=== PATIENT | female | born 1975 | race Caucasian/White ===

== ENCOUNTER 2016-08-05 00:30 | Emergency (ER) | payer OTHER ==
[2016-08-05 00:47] VITALS: TEMP 97.8; BMI 33.2
--- NOTE | 2016-08-05 01:17 | PDOC ---
History of Present Illness - History of Present Illness Initial Comments: 08/05/16 01:31 Patient is a 41 year old female with significant medical hx of cervical and uterine CA, craniotomy, laminectomy, budd chiari, who is presenting to the ED with abdominal pain for two weeks. Two weeks ago the patient developed a dull abdominal pain that has progressed the past three days. Her pain is localized to the RUQ and epigastric area; she denies radiation to the back. The patients pain is described as colicky with associated waves of nausea and loss of appetite. The patient states shes had hives with codeine but has no reaction with dilaudid. Denies diarrhea, changes in bowel habits, fever, chills. Surgical Hx: Total hysterectomy, appendectomy <Pina Osman - Last Filed: 08/05/16 01:29> <Kacey Kelly - Last Filed: 08/06/16 02:26> - General Chief Complaint: Pain Stated Complaint: R SIDED ABD PAIN Time Seen by Provider: 08/05/16 00:56 Past History <Pina Osman - Last Filed: 08/05/16 01:29> - Past Medical History Cancer: Yes (CERVIX AND UTERINE) Kidney Stones: Yes (LEFT SIDE 2002) Psychiatric Problems: Yes (anxiety) Suicide Attempt (Hx): No - Surgical History Appendectomy: Yes Neurologic Surgery: Yes (CRANIECTOMY/LAMINECTOMY) - Immunization History Immunization Up to Date: Yes (FLU ) - Psycho/Social/Smoking Cessation Hx Anxiety: No Suicidal Ideation: No Smoking Status: No Smoking History: Never smoked Have you smoked in the past 12 months: No Number of Cigarettes Smoked Daily: 0 Information on smoking cessation initiated: No Hx Alcohol Use: No Drug/Substance Use Hx: No Substance Use Type: None Hx Substance Use Treatment: No <Kacey Kelly - Last Filed: 08/06/16 02:26> - Past Medical History Allergies/Adverse Reactions: Allergies Allergy/AdvReac Type Severity Reaction Status Date / Time doxycycline Allergy Intermediate Hives Verified 08/05/16 00:48 acetaminophen [From Percocet] Allergy Mild Hives Verified 04/26/13 11:13 codeine Allergy Mild Hives Verified 04/26/13 11:15 oxycodone HCl [From Percocet] Allergy Mild Hives Verified 04/26/13 11:13 venom-honey bee Allergy Hives Verified 08/05/16 00:48 Home Medications: Ambulatory Orders Clonazepam [Klonopin] 1 mg PO HS PRN 08/05/16 Review of Systems - Review of Systems Comments:: 08/05/16 01:31 CONSTITUTIONAL: Present: loss of appetite Absent: fever, chills, diaphoresis, generalized weakness, malaise HEENT: Absent: rhinorrhea, nasal congestion, throat pain, throat swelling, difficulty swallowing, mouth swelling, ear pain, eye pain, visual changes CARDIOVASCULAR: Absent: chest pain, syncope, palpitations, irregular heart rate, lightheadedness , peripheral edema RESPIRATORY: Absent: cough, shortness of breath, dyspnea with exertion, orthopnea, wheezing, stridor, hemoptysis GASTROINTESTINAL: Present: RUQ and epigastric pain, nausea Absent: abdominal distension, vomiting, diarrhea, constipation, melena, hematochezia GENITOURINARY: Absent: dysuria, frequency, urgency, hesitancy, hematuria, flank pain, genital pain MUSCULOSKELETAL: Absent: myalgia, arthralgia, joint swelling SKIN: Absent: rash, itching, pallor HEMATOLOGIC/IMMUNOLOGIC: Absent: easy bleeding, easy bruising, lymphadenopathy, frequent infections ENDOCRINE: Absent: unexplained weight gain, unexplained weight loss, heat intolerance, cold intolerance NEUROLOGIC: Absent: headache, focal weakness or paresthesia, dizziness, unsteady gait, seizure, mental status changes, bladder or bowel incontinence. PSYCHIATRIC: Absent: anxiety, depression, suicidal or homicidal ideation, hallucinations <Jacqui,Pina - Last Filed: 08/05/16 01:29> *Physical Exam - Vital Signs Last Vital Signs Temp Pulse Resp BP Pulse Ox 97.8 F 97 H 18 141/90 97 08/05/16 00:46 08/05/16 00:46 08/05/16 00:46 08/05/16 00:46 08/05/16 00:46 - Physical Exam Comments: 08/05/16 01:33 GENERAL: Well developed, well nourished. Awake and alert. No acute distress. HEENT: Normocephalic, atraumatic. PERRLA, EOMI. No conjunctival pallor. Sclera are non- icteric. Moist mucous membranes. Oropharynx is clear. NECK: Supple. Full ROM. No JVD. Carotid pulses 2+ and symmetric, without bruits. No thyromegaly. No lymphadenopathy. CARDIOVASCULAR: Regular rate and rhythm. No murmurs, rubs, or gallops. Distal pulses are 2+ and symmetric. PULMONARY: No evidence of respiratory distress. Lungs clear to auscultation bilaterally. No wheezing, rales or rhonchi. ABDOMINAL: Soft. RUQ tenderness. Non-distended. No rebound or guarding. No organomegaly. Normoactive bowel sounds. MUSCULOSKELETAL: Normal range of motion at all joints. No bony deformities or tenderness. No CVA tenderness. EXTREMITIES: No cyanosis. No clubbing. No edema. No calf tenderness. SKIN: Warm and dry. Normal capillary refill. No rashes. No jaundice. NEUROLOGICAL: Alert, awake, appropriate. Cranial nerves 2-12 intact. Normal speech. Gait is normal without ataxia. PSYCHIATRIC: Cooperative. Good eye contact. Appropriate mood and affect. <Pina Osman - Last Filed: 08/05/16 01:29> - Vital Signs Last Vital Signs Temp Pulse Resp BP Pulse Ox 97.8 F 97 H 18 141/90 97 08/05/16 00:46 08/05/16 00:46 08/05/16 00:46 08/05/16 00:46 08/05/16 00:46 <Kacey Kelly - Last Filed: 08/06/16 02:26> ED Treatment Course - LABORATORY CBC & Chemistry Diagram: 08/05/16 01:30 08/05/16 01:30 <Kacey Kelly - Last Filed: 08/06/16 02:26> Medical Decision Making - Medical Decision Making 08/05/16 01:35 41-year-old female has had intermittent colicky pain in her right upper quadrant for the past several weeks. She also has complained of some waves of nausea. She has not had fever, chills, diarrhea, cough, dysuria Past surgical history significant for complete hysterectomy for cervical cancer and also appendectomy. 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 <Pina Osman - Last Filed: 08/05/16 01:29> <Kacye Kelly - Last Filed: 08/06/16 02:26> Diagnosis at time of Disposition: Abdominal pain - Discharge Dispostion Disposition: HOME Condition at time of disposition: Stable - Patient Instructions Printed Discharge Instructions: DI for Abdominal Pain-Adult Additional Instructions: You have had labs and urine analysis which are all within normal limits or acceptable parameters. CAT scan of the abdomen and pelvis was negative for acute intra-abdominal or pelvic pathology. Ultrasound was also negative for acute intra-abdominal or pelvic pathology. Please follow up with the primary care physician within one week. You may take Tylenol or Motrin as needed for pain. Return to the emergency department if your symptoms persist, worsen, or new symptoms arise
[2016-08-05] MEDS ORDERED: SODIUM CHLORIDE 1,000 ML IV STA (01:20)
[2016-08-05] MEDS ORDERED: ONDANSETRON 4 MG/2 ML VIAL IVPUSH ONE ×2 (01:25→09:57)
[2016-08-05] MEDS ORDERED: HYDROmorphone HCL CARPU-JECT 1 MG/1 ML DISP.SYRIN IVPB ONE (01:27)
[2016-08-05] MEDS ORDERED: ONDANSETRON 4 MG/2 ML VIAL ONE ×2 (01:29→10:31)
[2016-08-05] MEDS ORDERED: HYDROmorphone HCL CARPU-JECT 1 MG/1 ML DISP.SYRIN ONE ×2 (01:29→04:51)
[2016-08-05 01:46] LABS: BASOPHIL 0.6 % (0-2.0); EOSINOPHIL 2.4 % (0-4.5); MCH 28.8 pg (25.7-33.7); MEAN CELL VOLUME 87.2 fl (80-96); MEAN PLT VOLUME 7.7 fl (7.5-11.1); PLATELET COUNT 310 K/MM3 (134-434); RDW 13.1 % (11.6-15.6)
[2016-08-05 02:09] LABS: ALBUMIN 4.3 g/dl (3.4-5.0); ALK PHOS 62 U/L (45-117); ANION GAP 12 (8-16); BILIRUBIN,TOTAL 0.4 mg/dL (0.2-1.0); CALCIUM 9.2 mg/dL (8.5-10.1); CO2 25 mmol/L (21-32); CREATININE 0.8 mg/dL (0.55-1.02); GLUCOSE,RANDOM 100 mg/dL (74-106); SGOT/AST 12 U/L (15-37); SGPT/ALT 17 U/L (12-78); TOT PROT 7.8 g/dl (6.4-8.2)
[2016-08-05] MEDS ORDERED: traMADol HCL 50 MG TABLET PO ONE (03:00)
[2016-08-05] MEDS ORDERED: traMADol HCL 50 MG TABLET ONE (03:03)
[2016-08-05] MEDS ORDERED: HYDROmorphone HCL CARPU-JECT 1 MG/1 ML DISP.SYRIN IVPUSH ONE (04:48)
[2016-08-05 08:25] VITALS: BP 126/68; PULSE 98
[2016-08-05] MEDS ORDERED: KETOROLAC TROMETHAMINE 30 MG/1 ML VIAL IVPUSH ONE (08:35)
[2016-08-05] MEDS ORDERED: KETOROLAC TROMETHAMINE 30 MG/1 ML VIAL ONE (08:39)
[2016-08-05 09:26] LABS: URINE APPEARANCE CLEAR; URINE BILIRUBIN NEGATIVE (NEGATIVE); URINE BLOOD NEGATIVE (NEGATIVE); URINE COLOR LT. YELLOW; URINE GLUCOSE (UA) NEGATIVE (NEGATIVE); URINE KETONE NEGATIVE (NEGATIVE); URINE LEUK ESTERASE NEGATIVE (NEGATIVE); URINE NITRITE NEGATIVE (NEGATIVE); URINE PROTEIN NEGATIVE (NEGATIVE); URINE UROBILINOGEN 0.2 E.U/dl E.U./dl (0.2-1.0)
--- NOTE | 2016-08-05 10:01 | PDOC ---
*Physical Exam - Vital Signs Last Vital Signs Temp Pulse Resp BP Pulse Ox 97.8 F 98 H 18 126/68 100 08/05/16 00:46 08/05/16 08:24 08/05/16 08:24 08/05/16 08:24 08/05/16 08:24 ED Treatment Course - LABORATORY CBC & Chemistry Diagram: 08/05/16 01:30 08/05/16 01:30 - ADDITIONAL ORDERS Additional order review: Laboratory Results 08/05/16 08/05/16 08/05/16 09:00 01:42 01:30 Sodium 142 Potassium 4.0 Chloride 105 Carbon Dioxide 25 Anion Gap 12 BUN 14 Creatinine 0.8 D Creat Clearance w eGFR > 60 Random Glucose 100 Calcium 9.2 Total Bilirubin 0.4 AST 12 L D ALT 17 D Alkaline Phosphatase 62 Total Protein 7.8 Albumin 4.3 Total Amylase 99 D Lipase 264 Urine Color Lt. yellow Urine Appearance Clear Urine pH 5.0 Ur Specific [place] 1.010 Urine Protein Negative Urine Glucose (UA) Negative Urine Ketones Negative Urine Blood Negative Urine Nitrite Negative Urine Bilirubin Negative Urine Urobilinogen 0.2 e.u/dl Ur Leukocyte Esterase Negative 08/05/16 01:30 RBC 5.07 MCV 87.2 MCHC 33.0 RDW 13.1 MPV 7.7 Neutrophils % 55.0 Lymphocytes % 35.6 Monocytes % 6.4 Eosinophils % 2.4 Basophils % 0.6 - Medications Given in the ED: ED Medications Discontinued Medications Generic Name Dose Route Start Last Admin Trade Name Freq PRN Reason Stop Dose Admin Hydromorphone HCl 1 mg 08/05/16 01:27 08/05/16 01:45 Dilaudid Injection - IVPB 08/05/16 01:28 1 mg ONCE ONE Administration Hydromorphone HCl 1 mg 08/05/16 04:48 08/05/16 04:54 Dilaudid Injection - IVPUSH 08/05/16 04:49 1 mg ONCE ONE Administration Sodium Chloride 1,000 mls @ 1,000 mls/hr 08/05/16 01:20 08/05/16 01:45 Normal Saline - IV 08/05/16 02:19 1,000 mls/hr ASDIR STA Administration Ketorolac Tromethamine 30 mg 08/05/16 08:35 08/05/16 08:48 Toradol Injection - IVPUSH 08/05/16 08:36 30 mg ONCE ONE Administration Ondansetron HCl 4 mg 08/05/16 01:25 08/05/16 01:45 Zofran Injection IVPUSH 08/05/16 01:26 4 mg ONCE ONE Administration Tramadol HCl 50 mg 08/05/16 03:00 08/05/16 03:05 Ultram - PO 08/05/16 03:01 50 mg ONCE ONE Administration Progress Note - Progress Note Progress Note: The patient was endorsed to me at [address] Mane pending reevaluation and disposition. The patient is a 41-year-old female with history of [employer] malignancy status post hysterectomy who presents to the emergency department with 2 week history of right-sided abdominal pain and nausea but no vomiting. The patient denies complaints. I have reviewed her labs in the EMR as well as her imaging studies which were all negative. Urine analysis is also negative. I have discussed all of these results with the patient and she states that she continues to feel nauseated. I have ordered Zofran 4 mg IV for her as well as Toradol 30 mg IV. The plan is to discharge the patient home with follow- up with a primary care physician. I've advised the patient to return to the emergency department if her symptoms persist, worsen, or new symptoms arise. *DC/Admit/Observation/Transfer Diagnosis at time of Disposition: Abdominal pain - Discharge Dispostion Disposition: HOME Condition at time of disposition: Stable Admit: No - Patient Instructions Printed Discharge Instructions: DI for Abdominal Pain-Adult Additional Instructions: You have had labs and urine analysis which are all within normal limits or acceptable parameters. CAT scan of the abdomen and pelvis was negative for acute intra-abdominal or pelvic pathology. Ultrasound was also negative for acute intra-abdominal or pelvic pathology. Please follow up with the primary care physician within one week. You may take Tylenol or Motrin as needed for pain. Return to the emergency department if your symptoms persist, worsen, or new symptoms arise
== END 2016-08-05 10:50 | disposition home or self-care (01) ==
LOC: JER 00:30
PROC: 3E033NZ Introduction of Analgesics, Hypnotics, Sedatives into Peripheral Vein, Percutaneous Approach (ICD-10-PCS; principal; 2016-08-05)
PROC: 3E033GC Introduction of Other Therapeutic Substance into Peripheral Vein, Percutaneous Approach (ICD-10-PCS; 2016-08-05)
PROC: 3E0333Z Introduction of Anti-inflammatory into Peripheral Vein, Percutaneous Approach (ICD-10-PCS; 2016-08-05)
PROC: 3E0337Z Introduction of Electrolytic and Water Balance Substance into Peripheral Vein, Percutaneous Approach (ICD-10-PCS; 2016-08-05)
DX: R10.9 Unspecified abdominal pain (principal); Z85.41 Personal history of malignant neoplasm of cervix uteri; Z85.42 Personal history of malignant neoplasm of other parts of uterus; I82.0 Budd-Chiari syndrome
CPT/HCPCS: 36415; 74177-TC; 76705-TC; 80053; 81003; 82150; 83690; 85025; 99282-25